=== PATIENT | female | born 1960 | race Caucasian/White ===

== ENCOUNTER 2024-02-07 14:31 | Emergency (ER) | payer MEDICARE, OTHER, SELFPAY ==
--- NOTE | 2024-02-07 14:50 | DI.RAD.S_ITS ---
PROCEDURE: XR CHEST 1V INDICATIONS: chest pain TECHNIQUE: One view of the chest was acquired. COMPARISON: None. FINDINGS: Surgical changes and devices: None. Lungs and pleura: Lungs are clear. No pleural effusions or pneumothorax. Mediastinum: Mediastinal contours appear normal. Heart size is normal. Bones and chest wall: No suspicious bony lesions. Overlying soft tissues appear unremarkable. IMPRESSION: No acute cardiopulmonary abnormality is seen. Dictated by: Nathan Asif M.D. on 02/07/2024 at 16:15 Approved by: Nathan Asif M.D. on 02/07/2024 at 16:16
[2024-02-07 14:51] VITALS: BP 153/88; PULSE 105; RESP 18; TEMP 36.2; O2SAT 99; BMI 29.9
--- NOTE | 2024-02-07 14:55 | EKG_ITS ---
[address] [address] [place] [address] Test Date: 2024-02-07 Pat Name: Brenna Rogers Department: [facility] Room: Gender: Female Manager Discovery: CARLOS : 1960 Requested By: Order Number: [id number] Reading MD: Noah Michaels MD Measurements Intervals [place] Rate: 91 P: 64 [place]: 192 QRS: 58 QRSD: 70 T: 68 QT: 338 QTc: 415 Interpretive Statements Normal sinus rhythm Nonspecific ST abnormality Electronically Signed On 02-08-2024 7:25:19 PDT by Noah Michaels MD
[2024-02-07 14:58] LABS: Add Manual Diff / Slide Review NO; Basophils Absolute Auto 100 /uL (0-100); Eosinophils Absolute Auto 100 /uL (0-450); Eosinophils Percent Auto 1.2 % (2-4); Hematocrit 44.6 % (36-46); Hemoglobin 14.9 g/dL (12.0-16.0); Lymphocytes Absolute Auto 2100 /uL (1100-4500); Lymphocytes Percent Auto 29.4 % (25-40); Mean Corpuscular HGB Conc 33.5 % (30-36); Mean Corpuscular Hemoglobin 31.1 PG (26-34); Mean Corpuscular Volume 92.8 fL (80-100); Monocytes Absolute Auto 600 /uL (0-900); Monocytes Percent Auto 8.5 % (3-14); Neutrophils Absolute Auto 4200 /uL (1500-7000); Neutrophils Percent Auto 59.9 % (50-75); Platelet Count 371 X10^3/uL (150-400); Red Blood Cell Count 4.81 X10^6/uL (4.0-5.2); White Blood Cell Count 7.1 X10^3/uL (4.5-11.0)
--- NOTE | 2024-02-07 15:11 | PC.NURSE ---
Patient comes into the Er for having chest pressure and palpitations after a very short walk [place] go [place] the beach. She states that it wasn't even considered a walk. She states that she flew 3 hours from [place] today to go look at a house today at 16:30 and would leaving AMA if she's not discharged from the ER at that time. She is taking metoprolol 50mg in the past for 2 months then changed to 25 mg every other day. Sunday she had 25mg, Sunday another 25mg but none today. She denies history of DVT or blood clots. She is not having pain in her chest. She also has a hx of asthma and takes an Advair inhaler 2x daily and a rescue inhaler. She took both of those today and it did not help her symptoms.
[2024-02-07 15:13] LABS: INR 0.9 (0.9-1.3); Prothrombin Time 10.1 SECONDS (9.4-12.5)
[2024-02-07 15:15] LABS: PTT Partial Thromboplastin Tim 30 SECONDS (25.1-36.5)
[2024-02-07 15:19] LABS: Alanine Aminotransferase 24 IU/L (<35); Albumin 4.9 g/dL (3.5-5.0); Albumin Globulin Ratio 1.5 (1.0-2.8); Alkaline Phosphatase 59 U/L (38-126); Aspartate Aminotransferase 25 IU/L (14-36); BUN Creatinine Ratio 16.2 (6-22); Bilirubin Total 0.7 mg/dL (0.2-1.3); Blood Urea Nitrogen 18 mg/dL (7-17); Calcium 10.1 mg/dL (8.4-10.2); Carbon Dioxide 23 mmol/L (22-32); Chloride 105 mmol/L (98-107); Creatine Kinase 64 U/L (30-135); Estimated Glomerular Filt Rate 55 mL/min (>60); Globulin 3.3 g/dL (1.7-4.1); Glucose 121 mg/dL (80-110); HEMOLYSIS 18 (0-50); Lipase 252 U/L (23-300); Magnesium 2.1 mg/dL (1.6-2.3); Potassium 3.7 mmol/L (3.4-5.1); Sodium 138 mmol/L (137-145); Total Protein 8.2 g/dL (6.3-8.2)
[2024-02-07 15:30] LABS: NT-proBNP (BNP-Adult 18+) 22 pg/mL (<125); Troponin I < 0.012 ng/mL (0.01-0.034)
--- NOTE | 2024-02-07 15:45 | PC.NURSE ---
Charge nurse and Provider aware of the patient's intent to leave AMA if not discharged by 16:30.
--- NOTE | 2024-02-07 16:44 | ED.CHESTPAIN ---
HPI - Chest Pain General Chief Complaint: Chest Pain Stated Complaint: chest pain, heart palpitations Source: patient Mode of arrival: Ambulatory Limitations: no limitations History of Present Illness HPI narrative: Patient never evaluated by me had to leave before my evaluation. Blood work has been reviewed mild elevated creatinine 1.1- troponin EKGs normal sinus rhythm rate 91 DC interval 192 QRS [address] QTC [address] elevation or depression. LWBS Patient History Social History Smoking Status: Never smoker Smoking Status: Never smoker alcohol intake frequency: a few times a week Alcohol type: beer Substance Use Type: does not use Exam Initial Vital Signs Initial Vital Signs: Vital Signs Temperature 97.2 F L 02/07/24 14:51 Pulse Rate 105 H 02/07/24 14:51 Respiratory Rate 18 02/07/24 14:51 Blood Pressure 153/88 H 02/07/24 14:51 Pulse Oximetry 99 02/07/24 14:51 Oxygen Delivery Method Room Air 02/07/24 14:51 Course Orders Ordered: ED Orders 02/07/24 14:45 Complete Blood Count AUTO DIFF Stat Comprehensive Metabolic Panel Stat Lipase Stat Magnesium Stat NT-proBNP (BNP-Adult 18+) Stat PTT Partial Thromboplastin Jovan Stat Prothrombin Time INR Stat Troponin & CK Cardiac Panel Stat 02/07/24 14:50 XR chest 1V Stat EKG-12 Lead Stat Discontinued Medications Aspirin (Aspirin 81 Mg Chew Tab) 324 mg PO NOW ONE Stop: 02/07/24 14:51 Vital Signs Vital signs: Vital Signs - 8 hr 02/07/24 14:51 Temperature 97.2 F L Pulse Rate 105 H Respiratory Rate 18 Blood Pressure 153/88 H Pulse Oximetry 99 Oxygen Delivery Method Room Air MDM - Chest Pain Lab Data 02/07/24 14:45 02/07/24 14:45 Labs: Lab Results 02/07/24 Range/Units 14:45 WBC 7.1 (4.5-11.0) X10^3/uL RBC 4.81 (4.0-5.2) X10^6/uL Hgb 14.9 (12.0-16.0) g/dL Hct 44.6 (36-46) % MCV 92.8 (80-100) fL MCH 31.1 (26-34) PG MCHC 33.5 (30-36) % RDW 14.0 (11.6-14.8) % Plt Count 371 (150-400) X10^3/uL Neut % (Auto) 59.9 (50-75) % Lymph % (Auto) 29.4 (25-40) % [place] % (Auto) 8.5 (3-14) % Eos % (Auto) 1.2 L (2-4) % Baso % (Auto) 1.0 (0-2) % Neut # (Auto) 4200 (4163-5954) /uL Lymph # (Auto) 2100 (2029-7902) /uL [place] # (Auto) 600 (0-900) /uL Eos # (Auto) 100 (0-450) /uL Baso # (Auto) 100 (0-100) /uL PT 10.1 (9.4-12.5) SECONDS INR 0.9 (0.9-1.3) APTT 30 (25.1-36.5) SECONDS Sodium 138 (137-145) mmol/L Potassium 3.7 (3.4-5.1) mmol/L Chloride 105 (98-107) mmol/L Carbon Dioxide 23 (22-32) mmol/L BUN 18 H (7-17) mg/dL Creatinine 1.11 H (0.52-1.04) mg/dL Estimated GFR 55 L (>60) mL/min BUN/Creatinine Ratio 16.2 (6-22) Glucose 121 H (80-110) mg/dL Calcium 10.1 (8.4-10.2) mg/dL Magnesium 2.1 (1.6-2.3) mg/dL Total Bilirubin 0.7 (0.2-1.3) mg/dL AST 25 (14-36) IU/L ALT 24 (<35) IU/L Alkaline Phosphatase 59 (38-126) U/L Total Creatine Kinase 64 (30-135) U/L Troponin I < 0.012 (0.01-0.034) ng/mL NT-Pro-B Natriuret Pep 22 (<125) pg/mL Total Protein 8.2 (6.3-8.2) g/dL Albumin 4.9 (3.5-5.0) g/dL Globulin 3.3 (1.7-4.1) g/dL Albumin/Globulin Ratio 1.5 (1.0-2.8) Lipase 252 (23-300) U/L Discharge Plan Departure Patient Disposition: Left Without Being Seen Clinical Impression: Patient left without being seen
--- NOTE | 2024-02-07 16:47 | PC.NURSE ---
Patient was signed out VDC by another nurse. Patient's abnormal lab work was discussed with the provider. No request for follow up was made.
== END 2024-02-07 16:04 | disposition left against medical advice (07) ==
PROVIDERS: Emergency Provider Emergency Medicine
DX: R07.9 Chest pain, unspecified (principal); R00.2 Palpitations
CPT/HCPCS: 36415; 71045; 80053; 82550; 83690; 83735; 83880; 84484; 85025; 85610; 85730; 93005; 99283

== ENCOUNTER → 2024-08-15 | Outpatient (CLI) | payer MEDICARE, OTHER, SELFPAY ==
--- NOTE | 2024-08-15 | DI.MG.S_ITS ---
BILATERAL DIGITAL SCREENING MAMMOGRAM 3D/2D WITH CAD: 08/15/2024 CLINICAL: Routine screening. Baseline exam. No prior exams were available for comparison. There are scattered areas of fibroglandular density (category b / 25%-50% glandular tissue). Current study was also evaluated with a Computer Aided Detection (CAD) system. There is an oval low density focal asymmetry in the right breast at 2 o'clock middle depth. No other significant masses, calcifications, or other findings are seen in either breast. IMPRESSION: INCOMPLETE: NEED ADDITIONAL IMAGING EVALUATION The oval low density focal asymmetry in the right breast is indeterminate. A diagnostic mammogram and ultrasound is recommended. Based on the Tyrer Cuzick model (a risk assessment model) the patient's lifetime risk is 6.4% and her 10 year risk is 3.2%. According to the ACR, ACS, and NCCN guidelines, an annual breast MRI exam along with mammogram is recommended if the patient's lifetime risk is 20% or greater. This exam was interpreted at Station ID: [id number]. NOTE: For mammograms, a report in lay terms will be sent to the patient. Approximately 15% of breast malignancies will not be visualized mammographically. In the management of a palpable breast mass, a negative mammogram must not discourage biopsy of a clinically suspicious lesion. Electronically Signed By: Martell la/ector:08/28/2024 10:46:58 letter sent: Additional Imaging Needed ACR BI-RADS Category 0: Incomplete: Need Additional Imaging Evaluation
== END ==
LOC: MAMMO 15:04
PROVIDERS: PCP Physician Assistant; Referring Provider Physician Assistant; Visit Provider Physician Assistant
DX: Z12.31 Encounter for screening mammogram for malignant neoplasm of breast (principal)
CPT/HCPCS: 77063; 77067